=== PATIENT | female | born 1935 | race African-American/Black ===

== ENCOUNTER 2019-11-17 16:28 | Inpatient (IN) | payer MEDICARE, OTHER, MEDICAID ==
[~2019-11-17] VITALS: Ht 154.9 cm; Wt 82.0 kg
[2019-11-17 20:22] LABS: Basophils # (auto) 0 10 ^3/uL (0-0.2); Basophils % (auto) 0.6 % (0.0-2.0); Eosinophils # (auto) 0.1 10 ^3/uL (0-0.8); Eosinophils % (auto) 1.9 % (0.0-7.0); Hematocrit 44.9 % (36.0-46.0); Lymphocytes # (auto) 1.4 10 ^3/uL (0.4-5.4); Lymphocytes % (auto) 38.5 % (10.0-50.0); Mean Corpuscular Hemoglobin 28.3 pg (28.0-32.0); Mean Corpuscular Hgb Conc. 31.3 g/dL (32.0-36.0); Mean Corpuscular Volume 90.6 fL (80.0-100.0); Monocytes # (auto) 0.3 10 ^3/uL (0-1.3); Monocytes % (auto) 7.7 % (0.0-12.0); Neutrophils # (auto) 1.9 10 ^3/uL (1.6-8.6); Neutrophils % (auto) 51.3 % (37.0-80.0); Nucleated Red Blood Cells % 0.4 %; Platelet Count (auto) 312 10^3/uL (140-450); Red Blood Cells 4.95 10^6/uL (4.0-5.20); Red Cell Distribution Width 15.9 % (11.8-14.3); White Blood Cell 3.7 10^3/uL (4.4-10.8)
[2019-11-17 20:26] LABS: BUN/Creatinine Ratio 10.8; Calcium 8.9 mg/dL (8.5-10.1)
[2019-11-17 20:29] LABS: Bilirubin, Total 0.4 mg/dL (0.2-1.0); INR 1.03 (0.9-1.15); Partial Thromboplastin Time 28.3 sec (23.64-32.05); Total Protein 8.6 g/dL (6.4-8.2)
[2019-11-18] VITALS (7 sets, daily range): BP systolic 112–160; BP diastolic 65–76
[2019-11-18] MEDS ORDERED: ONDANSETRON HCL 4 MG/2 ML VIAL IV PRN (00:45)
[2019-11-18] MEDS ORDERED: POTASSIUM CHL 20 Meq TABLET PO ONE (00:45)
[2019-11-18] MEDS ORDERED: LABETALOL HCL 5 MG/ML 4ML SYRINGE IV ONE (00:45)
[2019-11-18] MEDS ORDERED: NITROGLYCERIN 0.4 MG SL TAB SL PRN (00:45)
[2019-11-18] MEDS ORDERED: PANTOPRAZOLE 40 MG/10 ML VIAL INJ IV ONE (00:45)
[2019-11-18] MEDS ORDERED: MORPHINE SULF INJ 2 MG/ML SYRINGE 1ML IV PRN (00:45)
[2019-11-18] MEDS: SODIUM CHLORIDE 0.9% 1,000 ML IV SCH ×2 (01:15→15:01)
[2019-11-18 02:17] LABS: Hematocrit 40.9 % (36.0-46.0); Hemoglobin 13.1 g/dL (12.2-16.2)
--- NOTE | 2019-11-18 03:17 | NUR ---
Telemetry admit from ER CLEMENTINE SETHI admitted to Telemetry unit after SBAR received. Patient oriented to Cora helton RN, unit, room, bed, and unit policies regarding patient care and visiting hours. Patient now on continuous telemetry monitoring, tele box # 62 and telemetry reading on arrival to unit is SB 49. Patient placed on bedside oxygen, weighed by bed scale and encouraged to call if they need something. All questions and concerns addressed, patient verbalized understanding. Note: Came per wheelchair awake alert oriented x 4, not in respiratory distress, placed in the bed comfortably, routine admission done.
--- NOTE | 2019-11-18 07:00 | NUR ---
Opening Shift Note Received report on the patient. Awake lying in bed. Patient shows no signs of distress at this time. Discussed the plan of care with the patient. Bed in lowest position, side rails up x2, and call light is within reach.
--- NOTE | 2019-11-18 07:19 | NUR ---
Care report given to Gloria Lara, patient is resting no distress.
[2019-11-18] MEDS: PANTOPRAZOLE 40 MG/10 ML VIAL INJ IV SCH (10:33)
--- NOTE | 2019-11-18 12:46 | NUR ---
Dr Crouch at bedside. No new orders received.
[2019-11-18] MEDS ORDERED: GOLYTELY 4L KIT PO ONE (14:30)
--- NOTE | 2019-11-18 19:34 | NUR ---
Endorsed care to VICTOR HUGO Green. Patient shows no signs of distress at this time.
--- NOTE | 2019-11-18 19:35 | NUR ---
Opening Shift Note Assumed care of patient AA&Ox4. Patient on 2L NC. Assisted patient to BSC and back to bed. Patient tolerated well. No S/S of distress/SOB or pain. Bed in lowest locked position, safety precautions in place, call light within reach. Patient informed NPO status @Midnight. Instructed on POC and to call for assist PRN, will continue to monitor for changes Q1hr and PRN. Signed: 11/18/19 at 2119 by VICENTE PARADA <Co-Signature Required> Co-Signed: 11/18/19 at 2119 by Rosemarie Santiago RN RN
[2019-11-18] MEDS: ALBUTEROL SULF 2.5 MG/0.5ML(0.5%) NEB SOLN NEB SCH (19:41)
--- NOTE | 2019-11-19 | NUR ---
NPO Patient aware of NPO status. Signed: 11/19/19 at 624 by VICENTE PARADA SN <Co-Signature Required> Co-Signed: 11/19/19 at 624 by Rosemarie Santiago RN RN
[2019-11-19] MEDS: SODIUM CHLORIDE 0.9% 1,000 ML IV SCH (03:24)
[2019-11-19 05:00] VITALS: BP 157/76
[2019-11-19 05:12] LABS: Basophils # (auto) 0 10 ^3/uL (0-0.2); Basophils % (auto) 0.6 % (0.0-2.0); Eosinophils # (auto) 0.1 10 ^3/uL (0-0.8); Eosinophils % (auto) 2.8 % (0.0-7.0); Hematocrit 38.2 % (36.0-46.0); Hemoglobin 12.3 g/dL (12.2-16.2); Lymphocytes # (auto) 1.6 10 ^3/uL (0.4-5.4); Lymphocytes % (auto) 46.3 % (10.0-50.0); Mean Corpuscular Hgb Conc. 32.3 g/dL (32.0-36.0); Mean Corpuscular Volume 89.9 fL (80.0-100.0); Monocytes # (auto) 0.4 10 ^3/uL (0-1.3); Monocytes % (auto) 11.7 % (0.0-12.0); Neutrophils # (auto) 1.3 10 ^3/uL (1.6-8.6); Neutrophils % (auto) 38.6 % (37.0-80.0); Nucleated Red Blood Cells % 0.2 %; Platelet Count (auto) 274 10^3/uL (140-450); Red Blood Cells 4.25 10^6/uL (4.0-5.20); Red Cell Distribution Width 15.6 % (11.8-14.3); White Blood Cell 3.4 10^3/uL (4.4-10.8)
[2019-11-19 05:30] LABS: Calcium 8.2 mg/dL (8.5-10.1)
[2019-11-19 05:36] LABS: Albumin 2.5 g/dL (3.4-5.0); BUN/Creatinine Ratio 11.1; Bilirubin, Total 0.4 mg/dL (0.2-1.0); Total Protein 7.2 g/dL (6.4-8.2)
[2019-11-19] MEDS ORDERED: GOLYTELY 4L KIT PO ONE (06:00)
[2019-11-19] MEDS ORDERED: MAGNESIUM CITRATE SOLUTION 300 ML BTL PO ONE (06:00)
[2019-11-19] MEDS: ALBUTEROL SULF 2.5 MG/0.5ML(0.5%) NEB SOLN NEB SCH ×3 (07:08→19:04)
[2019-11-19] MEDS ORDERED: POTASSIUM CHL 20MEQ/100ML 100 ML IV ONE (08:45)
[2019-11-19 09:00] VITALS: BP 156/76
[2019-11-19] MEDS: POTASSIUM CHL 20MEQ/100ML 100 ML IV SCH ×2 (09:24→10:27)
[2019-11-19] MEDS ORDERED: POTASSIUM EFFERVESENT TAB 25 MEQ PO ONE (09:45)
[2019-11-19] MEDS: PANTOPRAZOLE 40 MG/10 ML VIAL INJ IV SCH (10:26)
--- NOTE | 2019-11-19 11:58 | NUR ---
Tap water enema done. Patient tolerated well.
[2019-11-19 13:00] VITALS: BP 163/95
--- NOTE | 2019-11-19 13:41 | NUR ---
Patient down to OR. No signs of distress noted.
--- NOTE | 2019-11-19 14:00 | NUR ---
PATIENT WENT DOWN FOR A PROCEDURE. ATTEMPT P.T. TOMORROW.
[2019-11-19] MEDS: fentaNYL CITRATE 100 MCG/2 ML VL ONE ×3 (14:24→14:28)
[2019-11-19] MEDS: MIDAZOLAM HCL 5 MG/ML-1ML VIAL ONE ×3 (14:24→14:29)
[2019-11-19] MEDS ORDERED: SODIUM CHLORIDE LOCK 10 ML ONE (16:02)
--- NOTE | 2019-11-19 16:33 | NUR ---
assessment Patient is in a procedure. I will follow in the morning for my assessment. Addendum: 11/19/19 at 1634 by Yamilet ENCISO Amended: Links added.
[2019-11-19 17:00] VITALS: BP 137/70
--- NOTE | 2019-11-19 19:21 | NUR ---
Endorsed care to VICTOR HUGO Fung. Patient shows no signs of distress at this time.
--- NOTE | 2019-11-19 19:30 | NUR ---
Opening Shift Note Assumed care of patient, awake and alert. No S/S of distress/SOB or pain. Instructed on POC and to call for assist PRN, will continue to monitor for changes Q1hr and PRN.
--- NOTE | 2019-11-19 20:00 | NUR ---
Advised patient that stool has to be collected to be sent to lab for tests. Collection hat provided and placed on the patient's bedside commode. Patient verbalized understanding. Care continued.
[2019-11-19 21:47] VITALS: BP 133/62
[2019-11-19] MEDS: methylPREDNISolone SOD SUCC 40 MG/ML VL IV SCH (22:01)
[2019-11-19] MEDS: metroNIDAZOLE 500MG/100ML 100 ML IV SCH (22:01)
[2019-11-20 05:43] VITALS: BP 136/68
[2019-11-20] MEDS: methylPREDNISolone SOD SUCC 40 MG/ML VL IV SCH ×3 (05:55→22:31)
[2019-11-20] MEDS: metroNIDAZOLE 500MG/100ML 100 ML IV SCH ×3 (05:56→22:31)
--- NOTE | 2019-11-20 06:51 | NUR ---
Unable to collect stool specimen, patient also voids whenever she has a bowel movement. Will give report to oncoming RN.
[2019-11-20] MEDS: ALBUTEROL SULF 2.5 MG/0.5ML(0.5%) NEB SOLN NEB SCH ×2 (07:33→18:53)
--- NOTE | 2019-11-20 07:50 | NUR ---
Patient in bed, awake, oriented x4. Instructions given to press the call light if she has the urgency to have bowel movement to collect stool specimen.
[2019-11-20 08:00] VITALS: BP 138/72
[2019-11-20 09:00] VITALS: BP 138/72
[2019-11-20] MEDS: PANTOPRAZOLE 40 MG/10 ML VIAL INJ IV SCH (10:12)
[2019-11-20] MEDS: levoFLOXacin 500MG 100 ML IV SCH (10:13)
--- NOTE | 2019-11-20 11:00 | NUR ---
Radames Hines at bedside. Patient for possible discharge on Sunday. Patient has no BM today yet.
--- NOTE | 2019-11-20 11:30 | NUR ---
PT REQUESTED THAT P.T. BE DONE TOMORROW.
[2019-11-20 13:00] VITALS: BP 145/80
--- NOTE | 2019-11-20 13:52 | NUR ---
assessment Patient is a 84 year old female who is alert and oriented. Patients cognitive abilities are intact. Prior to admission patient lived home with family and functioned with assistance. Per patient she will return home to her prior living arrangements post discharge and family will transport her home. Patient informed me she has a fww and home 02 at 3L/min. Patient informed me her PCP is Dr Jama in [facility] for the past 15 years. Patient has no safety issues regarding returning home. I informed patient she has a consult for info on advanced directives and home health. Patient is requesting home health nurse and PT. Patient is requesting an advanced directive. Patient has been read a list of medicare providers. Patient has no preference on who provides service. Dr Crouch has recommended [facility]. MD order will be sent to [facility]. Patient has been provided with advanced directive. I informed patient she has a right to speak to a social services regarding all care. I informed patient she has a right to participate in any and all discharge planning. Patient does not have a POA and advanced directive. I have offered patient information on POA and advanced directives. I informed the patient the advantages and benefits of having an Advanced Directive. Patient verbalized understanding and agreed to discharge plan. Addendum: 11/20/19 at 1402 by Yamilet ENCISO Amended: Links added.
--- NOTE | 2019-11-20 13:59 | NUR ---
Call Center Support Representative Yamilet called back. Yamilet said patient needs order for Video Library Assistant Consult: PT, V/S, Safety as per Radames Hines
--- NOTE | 2019-11-20 14:09 | NUR ---
re-assessment Per consult [facility] for PT, V/S, safety. As stated in my previous note MD order has been sent to [facility]. Per Adela service will start within 24 to 48 hours of discharge. [phone]. Addendum: 11/20/19 at 1411 by Yamilet Diana Amended: Links added.
--- NOTE | 2019-11-20 16:40 | NUR ---
Stool specimen sent to Laboratory.
[2019-11-20 16:52] VITALS: BP 156/90
--- NOTE | 2019-11-20 17:10 | NUR ---
Laboratory received the stool specimen.
--- NOTE | 2019-11-20 18:41 | NUR ---
RT NOTE PT WAS SEEN BY RT FOR HHN TX. PT TOLERATES WELL VIA MASK. NO ADVERSE REACTION NOTED. CONT ORDERED Addendum: 11/20/19 at 2221 by Yolanda Dove RT Amended: Links added.
[2019-11-20 22:00] VITALS: BP 176/91
--- NOTE | 2019-11-21 04:09 | NUR ---
Patient complaining of headache and requested blood pressure to be taken. Per patient she takes blood pressure medication at home but unable to recall the name of medication. BH=551/107; HR=81; Hospitalist Carl Landa NP, paged. Awaiting for call back.
--- NOTE | 2019-11-21 04:29 | NUR ---
Received callback from hospitalist Carl Landa NP. Order received and noted. Medication will be given to patient as ordered. Care continued.
[2019-11-21] MEDS ORDERED: LABETALOL HCL 5 MG/ML 4ML SYRINGE IV ONE (04:30)
[2019-11-21 05:00] VITALS: BP 134/63
--- NOTE | 2019-11-21 05:35 | NUR ---
ZK=959/63; HR = 51. Patient verbalized headache is gone. Care continued.
[2019-11-21] MEDS: ALBUTEROL SULF 2.5 MG/0.5ML(0.5%) NEB SOLN NEB SCH ×3 (06:40→18:35)
[2019-11-21] MEDS: metroNIDAZOLE 500MG/100ML 100 ML IV SCH ×3 (06:44→22:20)
[2019-11-21] MEDS: methylPREDNISolone SOD SUCC 40 MG/ML VL IV SCH ×3 (06:44→22:20)
[2019-11-21 09:00] VITALS: BP 131/58
--- NOTE | 2019-11-21 10:48 | NUR ---
Dr Crouch at bedside. New orders received.
[2019-11-21] MEDS ORDERED: amLODIPine BESYLATE 5 MG TAB PO ONE (11:00)
[2019-11-21] MEDS ORDERED: cloNIDine HCL 0.1 MG TAB PO PRN (11:00)
[2019-11-21] MEDS: levoFLOXacin 500MG 100 ML IV SCH (11:22)
[2019-11-21] MEDS: PANTOPRAZOLE 40 MG/10 ML VIAL INJ IV SCH (11:22)
--- NOTE | 2019-11-21 12:43 | NUR ---
Nutrition Assessment Notes please see attached link for complete assessment Est Energy needs ABW 65 [id number] kcals (23-25 kcal/kgABW), Est Protein needs: 65-71 gms/day (1.0-1.1 gm/kgABW). Will continue to monitor and reassess prn. Addendum: 11/21/19 at [address] Amended: Links added.
[2019-11-21 13:00] VITALS: BP 131/75
[2019-11-21 14:13] VITALS: BP 131/58
[2019-11-21 16:29] VITALS: BP 136/62
--- NOTE | 2019-11-21 19:23 | NUR ---
ENDORSED CARE TO VICTOR HUGO PAREKH. PATIENT SHOWS NO SIGNS OF DISTRESS AT THIS TIME.
[2019-11-21 22:00] VITALS: BP 125/69
[2019-11-22 05:00] VITALS: BP 143/89
[2019-11-22] MEDS ORDERED: SODIUM CHLORIDE 0.9 % NEB SOLN 3ML NEB ONE ×2 (05:50→10:31)
[2019-11-22] MEDS: metroNIDAZOLE 500MG/100ML 100 ML IV SCH (06:10)
[2019-11-22] MEDS: methylPREDNISolone SOD SUCC 40 MG/ML VL IV SCH (06:10)
[2019-11-22] MEDS: ALBUTEROL SULF 2.5 MG/0.5ML(0.5%) NEB SOLN NEB SCH (07:11)
--- NOTE | 2019-11-22 08:56 | NUR ---
Dr Crouch at bedside. New orders received.
--- NOTE | 2019-11-22 09:33 | NUR ---
Paged the dairy nutrition consultant social organization professor regarding the home health with [facility]. Awaiting for a call back.
--- NOTE | 2019-11-22 09:45 | NUR ---
Nabila from nursing home social worker called back. Nabila stated that the home health is already set up and it's ok for the patient to discharge. I informed her that the patient is discharging today and she will call [facility] and let them know.
[2019-11-22] MEDS ORDERED: amLODIPine BESYLATE 5 MG TAB PO SCH (10:00)
[2019-11-22 10:05] VITALS: BP 133/65
[2019-11-22] MEDS: PANTOPRAZOLE 40 MG/10 ML VIAL INJ IV SCH (10:47)
[2019-11-22] MEDS: levoFLOXacin 500MG 100 ML IV SCH (10:47)
--- NOTE | 2019-11-22 17:32 | NUR ---
Discharged patient. Patient shows no signs of distress. IV removed, tele box returned, and patient take down by wheelchair.
--- NOTE | 2019-11-24 09:27 | NUR ---
Weekend electrician control equipment-I received a page from nurse Jane letting me know that this patient is to discharge home and resume care with [facility]. I called [facility] and spoke with Crystal, she said they will see patient 11/23/19.
== END 2019-11-22 17:35 | disposition home health service (06) | DRG 387 ==
LOC: ER 16:28 → TELE 16:29 → TELE-WESTW 11-18 03:22
PROVIDERS: ADMIT Nurse Practitioner; ATTEND Family Medicine
PROC: 0DBE8ZX Excision of Large Intestine, Via Natural or Artificial Opening Endoscopic, Diagnostic (ICD-10-PCS; principal; 2019-11-19 14:15)
DX: K51.011 Ulcerative (chronic) pancolitis with rectal bleeding (principal); I10 Essential (primary) hypertension; K64.8 Other hemorrhoids; E87.6 Hypokalemia; D25.9 Leiomyoma of uterus, unspecified; J43.9 Emphysema, unspecified; I70.0 Atherosclerosis of aorta; K59.8 Other specified functional intestinal disorders; Z90.49 Acquired absence of other specified parts of digestive tract; Z87.891 Personal history of nicotine dependence; Z90.89 Acquired absence of other organs; Z99.81 Dependence on supplemental oxygen
CPT/HCPCS: 36415; 45380; 71045; 74176; 80053; 82270; 83690; 85014; 85018; 85025; 85610; 85730; 86850; 86900; 86901; 86906; 87045; 87427; 87493; 94640; C9113; G0378; J1956; J2250; J3480; J3490

== ENCOUNTER 2019-12-06 23:16 | Inpatient (IN) | payer MEDICARE, MEDICAID ==
[~2019-12-06] VITALS: Ht 160 cm; Wt 80.9 kg
[2019-12-07 01:29] LABS: Basophils # (auto) 0 10 ^3/uL (0-0.2); Basophils % (auto) 0.3 % (0.0-2.0); Eosinophils # (auto) 0 10 ^3/uL (0-0.8); Eosinophils % (auto) 0.1 % (0.0-7.0); Hematocrit 44.2 % (36.0-46.0); Hemoglobin 14.8 g/dL (12.2-16.2); Lymphocytes # (auto) 0.1 10 ^3/uL (0.4-5.4); Lymphocytes % (auto) 0.7 % (10.0-50.0); Mean Corpuscular Hemoglobin 29.1 pg (28.0-32.0); Mean Corpuscular Hgb Conc. 33.3 g/dL (32.0-36.0); Mean Corpuscular Volume 87.3 fL (80.0-100.0); Monocytes # (auto) 0.1 10 ^3/uL (0-1.3); Monocytes % (auto) 0.7 % (0.0-12.0); Neutrophils # (auto) 10.6 10 ^3/uL (1.6-8.6); Neutrophils % (auto) 98.2 % (37.0-80.0); Nucleated Red Blood Cells % 0.1 %; Platelet Count (auto) 134 10^3/uL (140-450); Red Blood Cells 5.07 10^6/uL (4.0-5.20); Red Cell Distribution Width 16.4 % (11.8-14.3); White Blood Cell 10.8 10^3/uL (4.4-10.8)
[2019-12-07 01:49] LABS: Albumin 2.4 g/dL (3.4-5.0); BUN/Creatinine Ratio 15.7; Calcium 8.2 mg/dL (8.5-10.1); Potassium 3.1 mmol/L (3.5-5.1)
[2019-12-07 01:52] LABS: Bilirubin, Total 0.5 mg/dL (0.2-1.0); Total Protein 6.9 g/dL (6.4-8.2)
[2019-12-07 03:27] LABS: INR 1.17 (0.9-1.15); Partial Thromboplastin Time 26.5 sec (23.0-31.2)
[2019-12-07 07:16] LABS: Alcohol, Urine < 3.0 mg/dL (0-10); Amphetamine Screen, Urine NEGATIVE (NEGATIVE); Barbiturate Scree,Urine NEGATIVE (NEGATIVE); Benzodiazephine Screen, Urine NEGATIVE (NEGATIVE); Cannabinoid Screen, Urine NEGATIVE (NEGATIVE); Cocaine Screen, Urine NEGATIVE (NEGATIVE); Opiate Scree,Urine NEGATIVE (NEGATIVE); Phencyclidine Screen, Urine NEGATIVE (NEGATIVE)
[2019-12-07] MEDS ORDERED: POTASSIUM EFFERVESENT TAB 25 MEQ PO ONE ×2 (07:30→10:15)
[2019-12-07] MEDS ORDERED: FUROSEMIDE 20 MG/2 ML VIAL IV ONE (07:30)
[2019-12-07 07:48] LABS: Urine Bacteria NONE SEEN /hpf (None Seen); Urine Blood TRACE /uL (Negative); Urine Mucus FEW (None Seen); Urine WBC 54 /hpf (0 - 5)
[2019-12-07] MEDS ORDERED: cefTRIAXone 1GM/50ML D5W 50 ML IV ONE (09:00)
[2019-12-07] MEDS ORDERED: MORPHINE SULF INJ 2 MG/ML SYRINGE 1ML IV PRN ×2 (09:00→10:00)
[2019-12-07] MEDS ORDERED: NITROGLYCERIN 0.4 MG SL TAB SL PRN (09:00)
[2019-12-07] MEDS ORDERED: TEMAZEPAM 15 MG CAP PO PRN (10:00)
[2019-12-07] MEDS ORDERED: DEXTROSE (50%) 50ML SYRG IV PRN (10:00)
[2019-12-07] MEDS ORDERED: traMADol HCL 50 MG TAB PO PRN (10:00)
[2019-12-07] MEDS ORDERED: ACETAMINOPHEN 500 MG TAB PO PRN (10:00)
[2019-12-07] MEDS ORDERED: LACTULOSE 20Gm/30ML SOLN PO PRN (10:00)
[2019-12-07] MEDS ORDERED: ONDANSETRON HCL 4 MG/2 ML VIAL IV PRN (10:00)
[2019-12-07] MEDS: PANTOPRAZOLE 40 MG TAB PO SCH ×2 (10:34→10:42)
[2019-12-07] MEDS: ASPirin 81 mg TAB PO SCH (10:34)
[2019-12-07] MEDS: ENOXAPARIN SOD 40 MG/0.4 ML SYRINGE SC SCH (10:35)
[2019-12-07] MEDS: NITROGLYCERIN 0.2MG/HR TOPICAL PATCH TD SCH (10:42)
[2019-12-07] MEDS: ACCU-CHEK COMFORT CURVE STRIP VI SCH ×3 (11:53→21:56)
[2019-12-07] MEDS: SODIUM CHLOR 0.9% PF (SALINE LOCK) 10ML VIAL/SYR IV SCH ×2 (14:15→21:29)
[2019-12-07] MEDS: MESALAMINE 400mg Delayed Release Cap PO SCH ×2 (14:15→21:36)
[2019-12-07 20:55] VITALS: BP 126/61
--- NOTE | 2019-12-07 20:55 | NUR ---
assumed care of pt at this time, alert and oriented x4 no c/o pain, skin intact, 3 lpm via n/c NAD. IV flushes freely.
[2019-12-07] MEDS: metroNIDAZOLE 500 MG TAB PO SCH (21:36)
[2019-12-07] MEDS: ATORVASTATIN 20 MG TAB PO SCH (21:36)
[2019-12-07 22:00] VITALS: BP 126/61
[2019-12-08 05:00] VITALS: BP 108/67
[2019-12-08 05:15] LABS: Basophils # (auto) 0 10 ^3/uL (0-0.2); Basophils % (auto) 1.2 % (0.0-2.0); Eosinophils # (auto) 0 10 ^3/uL (0-0.8); Eosinophils % (auto) 0.3 % (0.0-7.0); Hematocrit 43.3 % (36.0-46.0); Hemoglobin 13.9 g/dL (12.2-16.2); Lymphocytes % (auto) 25.4 % (10.0-50.0); Mean Corpuscular Hemoglobin 28.5 pg (28.0-32.0); Mean Corpuscular Volume 88.9 fL (80.0-100.0); Monocytes # (auto) 0.2 10 ^3/uL (0-1.3); Monocytes % (auto) 5.3 % (0.0-12.0); Neutrophils # (auto) 2.7 10 ^3/uL (1.6-8.6); Neutrophils % (auto) 67.8 % (37.0-80.0); Nucleated Red Blood Cells % 0.6 %; Platelet Count (auto) 109 10^3/uL (140-450); Red Blood Cells 4.88 10^6/uL (4.0-5.20); Red Cell Distribution Width 16.4 % (11.8-14.3); White Blood Cell 3.9 10^3/uL (4.4-10.8)
[2019-12-08 05:39] LABS: Albumin 2.2 g/dL (3.4-5.0); Potassium 3.5 mmol/L (3.5-5.1)
[2019-12-08] MEDS: SODIUM CHLOR 0.9% PF (SALINE LOCK) 10ML VIAL/SYR IV SCH ×3 (05:43→22:25)
[2019-12-08] MEDS: MESALAMINE 400mg Delayed Release Cap PO SCH ×3 (05:43→22:25)
[2019-12-08 05:45] LABS: BUN/Creatinine Ratio 21.7; Bilirubin, Total 0.3 mg/dL (0.2-1.0); Total Protein 6.3 g/dL (6.4-8.2)
[2019-12-08] MEDS: ACCU-CHEK COMFORT CURVE STRIP VI SCH ×4 (06:22→22:34)
--- NOTE | 2019-12-08 07:40 | NUR ---
SHIFT OPENING NOTE RECEIVED PATIENT LYING IN BED SLEEPING COMFORTABLY AND WAS IN NO DISTRESS. PATIENT EASILY AWAKENED AND VOICED NO C/O PAIN AND PATIENT WAS IN NO DISTRESS. SHIFT [id number] DONE AND CHARTED. PLAN OF CARE, MEDS, TREATMENTS AND SAFETY DISCUSSED WITH PATIENT AND PATIENT VERBALIZED UNDERSTANDING. WILL CONTINUE TO MONITOR PATIENT.
[2019-12-08 08:00] VITALS: BP 105/76
[2019-12-08 09:00] VITALS: BP 105/53
[2019-12-08] MEDS: cefTRIAXone 1GM/50ML D5W 50 ML IV SCH (09:01)
[2019-12-08 10:18] LABS: Free T3 1.34 pg/mL (2.3-4.2); Free T4 (Free Thyroxine) 0.83 ng/dL (0.89-1.76)
[2019-12-08] MEDS: FUROSEMIDE 40 MG/4 ML VIAL IV SCH (11:10)
[2019-12-08] MEDS: NITROGLYCERIN 0.2MG/HR TOPICAL PATCH TD SCH (11:12)
[2019-12-08] MEDS: metroNIDAZOLE 500 MG TAB PO SCH ×2 (11:14→22:25)
[2019-12-08] MEDS: ASPirin 81 mg TAB PO SCH (11:14)
[2019-12-08] MEDS: PANTOPRAZOLE 40 MG TAB PO SCH (11:15)
[2019-12-08] MEDS: ENOXAPARIN SOD 40 MG/0.4 ML SYRINGE SC SCH (11:15)
[2019-12-08] MEDS: POTASSIUM CHL 20 Meq TABLET PO SCH (11:15)
--- NOTE | 2019-12-08 11:57 | NUR ---
ACCUCHECK DONE BS-129
[2019-12-08 13:00] VITALS: BP 114/59
[2019-12-08 17:00] VITALS: BP 127/62
--- NOTE | 2019-12-08 19:40 | NUR ---
Opening Shift Note Assumed care of patient. Patient asleep but easily arousable to name. No S/S of distress/SOB or pain. Patient reports feeling weak but otherwise no other complaints. Educated the patient on the need to call for assistance for her safety. Instructed on POC, will continue to monitor for changes Q1hr and PRN.
[2019-12-08] MEDS: ATORVASTATIN 20 MG TAB PO SCH (22:25)
[2019-12-08 22:26] VITALS: BP 119/54
[2019-12-08] MEDS: METOPROLOL TARTRATE 25 MG TAB PO SCH (22:27)
[2019-12-09 05:53] VITALS: BP 107/66
[2019-12-09] MEDS: SODIUM CHLOR 0.9% PF (SALINE LOCK) 10ML VIAL/SYR IV SCH ×2 (06:00→14:07)
[2019-12-09] MEDS: ACCU-CHEK COMFORT CURVE STRIP VI SCH ×2 (06:59→11:43)
[2019-12-09] MEDS: MESALAMINE 400mg Delayed Release Cap PO SCH ×2 (07:00→14:06)
[2019-12-09 07:06] LABS: Basophils # (auto) 0 10 ^3/uL (0-0.2); Basophils % (auto) 0.5 % (0.0-2.0); Eosinophils # (auto) 0 10 ^3/uL (0-0.8); Eosinophils % (auto) 0.8 % (0.0-7.0); Hemoglobin 12.9 g/dL (12.2-16.2); Lymphocytes # (auto) 1.2 10 ^3/uL (0.4-5.4); Lymphocytes % (auto) 28.4 % (10.0-50.0); Mean Corpuscular Hemoglobin 27.7 pg (28.0-32.0); Mean Corpuscular Hgb Conc. 31.6 g/dL (32.0-36.0); Mean Corpuscular Volume 87.6 fL (80.0-100.0); Monocytes # (auto) 0.2 10 ^3/uL (0-1.3); Monocytes % (auto) 4.6 % (0.0-12.0); Neutrophils # (auto) 2.9 10 ^3/uL (1.6-8.6); Neutrophils % (auto) 65.7 % (37.0-80.0); Nucleated Red Blood Cells % 0.3 %; Platelet Count (auto) 111 10^3/uL (140-450); Red Blood Cells 4.68 10^6/uL (4.0-5.20); Red Cell Distribution Width 16.3 % (11.8-14.3); White Blood Cell 4.4 10^3/uL (4.4-10.8)
[2019-12-09 07:19] LABS: BUN/Creatinine Ratio 21.8; Calcium 8.2 mg/dL (8.5-10.1)
--- NOTE | 2019-12-09 07:40 | NUR ---
OPENING SHIFT NOTE RECEIVED PATIENT LYING IN BED SLEEPING COMFORTABLY AND WAS IN NO DISTRESS. PATIENT EASILY AWAKENED AND VOICED NO C/O PAIN. SHIFT ASSESSMENT DONE AND CHARTED. PLAN OF CARE, MEDICATIONS, TREATMENTS AND SAFETY DISCUSSED WITH PATIENT AND PATIENT VERBALIZED UNDERSTANDING. BED WAS IN LOWEST POSITION, BRAKES AND SIDERAILS UP X2. WILL CONTINUE TO MONITOR PATIENT.
[2019-12-09 09:00] VITALS: BP 102/58
[2019-12-09] MEDS: cefTRIAXone 1GM/50ML D5W 50 ML IV SCH (09:10)
[2019-12-09] MEDS ORDERED: POTASSIUM EFFERVESENT TAB 25 MEQ GT ONE (10:00)
[2019-12-09] MEDS ORDERED: MET25T PO (10:31)
[2019-12-09] MEDS ORDERED: FURO1TAB33 PO (10:31)
[2019-12-09] MEDS ORDERED: MET500T PO (10:31)
[2019-12-09] MEDS ORDERED: ASPI81CH43 PO (10:31)
[2019-12-09] MEDS ORDERED: ATOR20TA50 PO (10:31)
[2019-12-09] MEDS: ASPirin 81 mg TAB PO SCH (10:48)
[2019-12-09] MEDS: PANTOPRAZOLE 40 MG TAB PO SCH (10:49)
[2019-12-09] MEDS: POTASSIUM CHL 20 Meq TABLET PO SCH (10:49)
[2019-12-09] MEDS: metroNIDAZOLE 500 MG TAB PO SCH (10:49)
[2019-12-09] MEDS: ENOXAPARIN SOD 40 MG/0.4 ML SYRINGE SC SCH (10:49)
[2019-12-09] MEDS: FUROSEMIDE 40 MG/4 ML VIAL IV SCH (10:49)
[2019-12-09] MEDS: METOPROLOL TARTRATE 25 MG TAB PO SCH (10:50)
[2019-12-09] MEDS: NITROGLYCERIN 0.2MG/HR TOPICAL PATCH TD SCH (10:52)
[2019-12-09 12:00] VITALS: BP 119/68
--- NOTE | 2019-12-09 12:40 | NUR ---
Frausto catheter dc'd Order to discontinue frausto catheter. Frausto dc'd with clean technique following deflation of balloon. Patient tolerated well with no complaints of pain. Continue care.
[2019-12-09 13:58] VITALS: BP 119/68
--- NOTE | 2019-12-09 16:30 | NUR ---
Discharge instructions given as ordered. Encourage to follow up with PMD as instructed. All questions and concerns addressed. Patient verbalized understanding. Medication reconciliation form completed and copy given to patient. IV removed with catheter intact, pressure dressing applied, frausto catheter removed and has already voided without difficulty. Telemetry unit returned to ICU. Patient taken to vehicle via wheelchair with all personal belongings, accompanied by staff and family member. No distress noted at time of departure.
== END 2019-12-09 16:30 | disposition home or self-care (01) | DRG 280 ==
LOC: ER 23:16 → TELE 23:17 → TELE-WESTW 12-07 20:55
PROVIDERS: ADMIT Internal Medicine; ATTEND Internal Medicine Pulmonary Disease
DX: I21.4 Non-ST elevation (NSTEMI) myocardial infarction (principal); I50.43 Acute on chronic combined systolic (congestive) and diastolic (congestive) heart failure; N39.0 Urinary tract infection, site not specified; N17.9 Acute kidney failure, unspecified; J96.10 Chronic respiratory failure, unspecified whether with hypoxia or hypercapnia; I11.0 Hypertensive heart disease with heart failure; E78.5 Hyperlipidemia, unspecified; E87.6 Hypokalemia; J44.9 Chronic obstructive pulmonary disease, unspecified; Z86.73 Personal history of transient ischemic attack (TIA), and cerebral infarction without residual deficits; Z87.891 Personal history of nicotine dependence; F12.90 Cannabis use, unspecified, uncomplicated; Z80.9 Family history of malignant neoplasm, unspecified; Z83.3 Family history of diabetes mellitus; Z99.81 Dependence on supplemental oxygen; Z20.828 Contact with and (suspected) exposure to other viral communicable diseases
CPT/HCPCS: 36415; 70450; 71045; 80048; 80053; 80061; 80307; 81001; 82550; 82962; 83036; 83605; 83735; 83880; 84439; 84443; 84481; 84484; 85025; 85610; 85730; 87040; 87081; 87086; 87493; 93005; 93306; G0378; J0696

== ENCOUNTER 2022-11-29 14:55 | Inpatient (IN) | payer MEDICARE, OTHER ==
[~2022-11-29] VITALS: Ht 165.1 cm; Wt 58.3 kg
[~2022-11-29 14:55] MED LIST: ASPI81CH43 PO; ATOR20TA50 PO; FURO1TAB33 PO; MET25T PO; MET500T PO
[2022-11-29] MEDS ORDERED: ASPirin 325 MG TAB PO ONE (15:30)
[2022-11-29] MEDS ORDERED: ACETAMINOPHEN 325 MG TAB PO PRN (17:45)
[2022-11-29] MEDS ORDERED: ONDANSETRON HCL 4 MG/2 ML VIAL IV PRN (17:45)
[2022-11-29] MEDS ORDERED: DOCUSATE SOD 100 MG CAP PO PRN (17:45)
[2022-11-29 18:29] VITALS: PULSE 61; RESP 16; O2SAT 95
[2022-11-29 18:48] LABS: Hematocrit 32.1 % (36.0-46.0)
[2022-11-29 18:50] LABS: Hemoglobin 9.9 g/dL (12.2-16.2); Mean Corpuscular Hgb Conc. 30.7 g/dL (32.0-36.0); Mean Corpuscular Volume 78.3 fL (80.0-100.0); Red Blood Cells 4.11 10^6/uL (4.0-5.20); White Blood Cell 3.5 10^3/uL (4.4-10.8)
[2022-11-29 18:51] LABS: Red Cell Distribution Width 23.1 % (11.8-14.3)
[2022-11-29 18:54] LABS: Albumin 2.7 g/dL (3.4-5.0); Calcium 8.4 mg/dL (8.5-10.1)
[2022-11-29 18:57] LABS: Bilirubin, Total 0.9 mg/dL (0.2-1.0); Total Protein 6.8 g/dL (6.4-8.2)
[2022-11-29 19:00] LABS: INR 1.12 (0.9-1.15); Partial Thromboplastin Time 25.9 SEC (24.5-34.5); Prothrombin Time 11.7 sec (9.3-11.8)
[2022-11-29] MEDS ORDERED: cloNIDine HCL 0.1 MG TAB PO ONE (19:00)
[2022-11-29 19:04] LABS: Band Neutrophils % (manual) 0; Basophils % (manual) 0 (0.0-2.0); Blast Cells 0; Metamyelocytes % 0; Myelocytes % 0; Promyelocytes % 0; Reactive Lymphocytes 0
[2022-11-29 19:13] LABS: Base Excess -1.4 mmol/L (-2.0-2.0)
[2022-11-29 19:31] VITALS: PULSE 59; RESP 18; O2SAT 99
[2022-11-29 19:32] LABS: Anisocytosis Slight; Eosinophils % (manual) 2 (0-7); Hypochromia Slight; Large Platelets FEW; Lymphocytes % (manual) 41 (10.0-50.0); Monocytes % (manual) 3 (0-12); Platelet Estimate Adequate; Target Cell FEW
[2022-11-29 20:24] LABS: % Iron Saturation 15.9 % (15-50)
[2022-11-29] MEDS ORDERED: HEPARIN SODIUM (PORCINE) 5000 UNITS/ML 1ML VIAL IV ONE (20:45)
[2022-11-29] MEDS ORDERED: HEPARIN DRIP/D5W 100UNITS/ML 250 ML IV SCH (20:45)
[2022-11-29] MEDS ORDERED: IOHEXOL 350 MG/ML 100ML IJ ONE (21:57)
[2022-11-29] MEDS ORDERED: ATORVASTATIN 20 MG TAB PO SCH (22:00)
[2022-11-29] MEDS: SODIUM CHLOR 0.9% PF (SALINE LOCK) 10ML VIAL/SYR IV SCH (22:19)
[2022-11-29] MEDS: METOPROLOL TARTRATE 25 MG TAB PO SCH (22:20)
[2022-11-29 22:48] VITALS: O2SAT 93
[2022-11-29] MEDS: HYDROcodone-ACET 5/325MG TAB PO PRN (22:59)
[2022-11-29] MEDS: hydrALAZINE HCL 20 MG/ML VL IV PRN (22:59)
[2022-11-30] VITALS (8 sets, daily range): BP systolic 147–193; BP diastolic 68–88; PULSE 45–73; RESP 16–22; TEMP 97.6–98.5; O2SAT 92–99
[2022-11-30 04:27] LABS: INR 1.19 (0.9-1.15); Prothrombin Time 12.4 sec (9.3-11.8)
[2022-11-30 04:35] LABS: Partial Thromboplastin Time 93.6 SEC (24.5-34.5)
[2022-11-30] MEDS ORDERED: AMLO1TAB22 PO (05:19)
[2022-11-30] MEDS ORDERED: CYCL-614 PO (05:19)
[2022-11-30] MEDS ORDERED: POTA1TAB4 (05:19)
[2022-11-30] MEDS ORDERED: PRAV20TA3 PO (05:19)
[2022-11-30] MEDS ORDERED: CLOP75TA70 PO (05:19)
[2022-11-30] MEDS ORDERED: FUR20T PO (05:19)
[2022-11-30] MEDS ORDERED: METH-1181 PO (05:19)
[2022-11-30] MEDS ORDERED: SULF500T57 PO (05:19)
[2022-11-30] MEDS ORDERED: LOPE-62 PO (05:19)
[2022-11-30] MEDS ORDERED: LEVO75TA6 PO (05:19)
[2022-11-30] MEDS ORDERED: HEPARIN DRIP/D5W 100UNITS/ML 250 ML IV SCH (05:36)
[2022-11-30] MEDS: SODIUM CHLOR 0.9% PF (SALINE LOCK) 10ML VIAL/SYR IV SCH ×3 (06:12→22:00)
[2022-11-30] MEDS: METOPROLOL TARTRATE 25 MG TAB PO SCH ×2 (09:21→22:00)
[2022-11-30] MEDS: ASPirin 81 mg TAB PO SCH (09:23)
[2022-11-30] MEDS: FUROSEMIDE 20 MG TAB PO SCH (09:23)
[2022-11-30 11:43] LABS: Hepatitis A Ab IgM Negative; Hepatitis B Surface Antigen Negative (Negative)
[2022-11-30 11:44] LABS: Hepatitis B Core IgM Negative; Hepatitis C Antibody Negative (Negative)
[2022-11-30 13:06] LABS: Alcohol, Urine < 3.0 mg/dL (0-10); Amphetamine Screen, Urine NEGATIVE (NEGATIVE); Barbiturate Scree,Urine NEGATIVE (NEGATIVE); Benzodiazephine Screen, Urine NEGATIVE (NEGATIVE); Cannabinoid Screen, Urine NEGATIVE (NEGATIVE); Cocaine Screen, Urine NEGATIVE (NEGATIVE); Opiate Scree,Urine NEGATIVE (NEGATIVE); Phencyclidine Screen, Urine NEGATIVE (NEGATIVE)
[2022-11-30 13:10] LABS: Urine Bacteria NONE SEEN /hpf (None Seen); Urine Blood 2+ /uL (Negative); Urine Clarity Clear (Clear); Urine Protein, UAD Negative (Negative); Urine Specific Gravity 1.019 (1.001-1.035); Urine Urobilinogen Normal (Negative); Urine WBC 9 /hpf (0 - 5)
[2022-11-30 13:19] LABS: Urine Color Straw (Yellow)
[2022-11-30 14:33] LABS: INR 1.14 (0.9-1.15); Partial Thromboplastin Time 48.1 SEC (24.5-34.5); Prothrombin Time 11.9 sec (9.3-11.8)
[2022-11-30] MEDS: HEPARIN DRIP/D5W 100UNITS/ML 250 ML IV SCH ×2 (15:56→23:43)
[2022-11-30] MEDS: HYDROcodone-ACET 5/325MG TAB PO PRN (19:33)
[2022-11-30] MEDS ORDERED: ATORVASTATIN 20 MG TAB PO SCH (22:00)
[2022-11-30 23:00] LABS: INR 1.14 (0.9-1.15); Partial Thromboplastin Time 62.1 SEC (24.5-34.5); Prothrombin Time 11.9 sec (9.3-11.8)
[2022-11-30] MEDS: hydrALAZINE HCL 20 MG/ML VL IV PRN (23:44)
[2022-12-01] VITALS (7 sets, daily range): BP systolic 147–165; BP diastolic 63–78; PULSE 50–97; RESP 16–19; TEMP 97.9–98.4; O2SAT 96–100
[2022-12-01] MEDS: SODIUM CHLOR 0.9% PF (SALINE LOCK) 10ML VIAL/SYR IV SCH ×3 (06:19→22:00)
[2022-12-01 06:26] LABS: INR 1.14 (0.9-1.15); Partial Thromboplastin Time 69.9 SEC (24.5-34.5); Prothrombin Time 11.9 sec (9.3-11.8)
[2022-12-01 06:50] LABS: % Iron Saturation 27.7 % (15-50)
[2022-12-01 06:54] LABS: Ferritin 29.8 ng/mL (10-322)
[2022-12-01] MEDS ORDERED: LEVOTHYROXINE SODIUM 25 MCG TAB PO SCH (07:00)
[2022-12-01] MEDS: ASPirin 81 mg TAB PO SCH (10:53)
[2022-12-01] MEDS: FUROSEMIDE 20 MG TAB PO SCH (10:53)
[2022-12-01] MEDS: METOPROLOL TARTRATE 25 MG TAB PO SCH ×2 (10:54→22:00)
[2022-12-01 12:05] LABS: Hemoglobin 8.8 g/dL (12.2-16.2); White Blood Cell 3.6 10^3/uL (4.4-10.8)
[2022-12-01 12:07] LABS: Hematocrit 28.6 % (36.0-46.0); Mean Corpuscular Hemoglobin 23.9 pg (28.0-32.0); Mean Corpuscular Hgb Conc. 30.7 g/dL (32.0-36.0); Mean Corpuscular Volume 77.8 fL (80.0-100.0); Red Blood Cells 3.68 10^6/uL (4.0-5.20)
[2022-12-01 12:11] LABS: INR 1.18 (0.9-1.15); Prothrombin Time 12.3 sec (9.3-11.8)
[2022-12-01 12:17] LABS: Red Cell Distribution Width 22.9 % (11.8-14.3)
[2022-12-01 12:18] LABS: Basophils % (manual) 0 (0.0-2.0); Blast Cells 0; Eosinophils % (manual) 0 (0-7); Metamyelocytes % 0; Myelocytes % 0; Promyelocytes % 0; Reactive Lymphocytes 0
[2022-12-01 12:53] LABS: Partial Thromboplastin Time > 139.0 SEC (24.5-34.5)
[2022-12-01 13:49] LABS: Band Neutrophils % (manual) 1; Lymphocytes % (manual) 38 (10.0-50.0); Monocytes % (manual) 10 (0-12)
[2022-12-01 13:51] LABS: Anisocytosis Slight; Hypochromia Slight; Platelet Estimate Adequate
[2022-12-01] MEDS: hydrALAZINE HCL 20 MG/ML VL IV PRN (18:58)
[2022-12-01] MEDS: HYDROcodone-ACET 5/325MG TAB PO PRN (22:08)
[2022-12-02] VITALS (7 sets, daily range): BP systolic 125–158; BP diastolic 56–76; PULSE 50–74; RESP 16–18; TEMP 97.6–98.6; O2SAT 94–100
[2022-12-02] MEDS: SODIUM CHLOR 0.9% PF (SALINE LOCK) 10ML VIAL/SYR IV SCH ×3 (06:01→21:18)
[2022-12-02] MEDS: ENOXAPARIN SOD 60 MG/0.6 ML SYRINGE SC SCH ×3 (06:02→21:18)
[2022-12-02 08:06] LABS: Anti-Nuclear Antibody Direct Positive (Negative); Haptoglobin 73 mg/dL (41-333)
[2022-12-02] MEDS: METOPROLOL TARTRATE 25 MG TAB PO SCH (09:31)
[2022-12-02] MEDS: ASPirin 81 mg TAB PO SCH (10:17)
[2022-12-02] MEDS: FUROSEMIDE 20 MG TAB PO SCH (10:18)
[2022-12-02 11:40] LABS: Hemoglobin 8.9 g/dL (12.2-16.2); Mean Corpuscular Hgb Conc. 30.9 g/dL (32.0-36.0); White Blood Cell 2.5 10^3/uL (4.4-10.8)
[2022-12-02 11:42] LABS: Hematocrit 28.9 % (36.0-46.0); Mean Corpuscular Hemoglobin 24.1 pg (28.0-32.0); Mean Corpuscular Volume 78.2 fL (80.0-100.0); Red Blood Cells 3.69 10^6/uL (4.0-5.20); Red Cell Distribution Width 22.6 % (11.8-14.3)
[2022-12-02 11:47] LABS: Calcium 8.4 mg/dL (8.5-10.1); Potassium 3.5 mmol/L (3.5-5.1)
[2022-12-02 12:05] LABS: Band Neutrophils % (manual) 0; Basophils % (manual) 0 (0.0-2.0); Blast Cells 0; Eosinophils % (manual) 0 (0-7); Metamyelocytes % 0; Myelocytes % 0; Promyelocytes % 0; Reactive Lymphocytes 0
[2022-12-02 13:06] LABS: Hepatitis B Core Total Antibod Negative (Negative)
[2022-12-02 16:34] LABS: Anisocytosis Slight; Hypochromia Moderate; Large Platelets FEW; Lymphocytes % (manual) 25 (10.0-50.0); Monocytes % (manual) 6 (0-12); Platelet Estimate Adequate; Target Cell FEW
[2022-12-03 05:00] VITALS: BP 148/62; PULSE 98; RESP 17; TEMP 98.4; O2SAT 98
[2022-12-03] MEDS: SODIUM CHLOR 0.9% PF (SALINE LOCK) 10ML VIAL/SYR IV SCH ×2 (06:01→13:30)
[2022-12-03] MEDS ORDERED: LEVOTHYROXINE SODIUM 25 MCG TAB PO SCH (07:00)
[2022-12-03 08:00] VITALS: PULSE 59
[2022-12-03 08:30] LABS: Hemoglobin 8.4 g/dL (12.2-16.2)
[2022-12-03 08:32] LABS: Mean Corpuscular Hemoglobin 24.5 pg (28.0-32.0); Mean Corpuscular Hgb Conc. 31.2 g/dL (32.0-36.0); Mean Corpuscular Volume 78.6 fL (80.0-100.0); Red Blood Cells 3.44 10^6/uL (4.0-5.20); White Blood Cell 3.5 10^3/uL (4.4-10.8)
[2022-12-03 08:45] LABS: Red Cell Distribution Width 22.7 % (11.8-14.3)
[2022-12-03 08:46] LABS: Band Neutrophils % (manual) 0; Basophils % (manual) 0 (0.0-2.0); Blast Cells 0; Metamyelocytes % 0; Myelocytes % 0; Promyelocytes % 0; Reactive Lymphocytes 0
[2022-12-03 08:54] VITALS: BP 142/57; PULSE 51; RESP 18; TEMP 97.9; O2SAT 97
[2022-12-03] MEDS: ENOXAPARIN SOD 60 MG/0.6 ML SYRINGE SC SCH (11:19)
[2022-12-03] MEDS: FUROSEMIDE 20 MG TAB PO SCH (11:19)
[2022-12-03] MEDS: ASPirin 81 mg TAB PO SCH (11:19)
[2022-12-03 13:00] VITALS: BP_SYST 119; BP_SYST 122; BP_DIAS 55; BP_DIAS 63; PULSE 76; RESP 14; TEMP 98; O2SAT 96
[2022-12-03 13:38] LABS: Eosinophils % (manual) 1 (0-7); Lymphocytes % (manual) 43 (10.0-50.0); Monocytes % (manual) 3 (0-12)
[2022-12-03 13:39] LABS: Anisocytosis Slight; Platelet Estimate Adequate; Target Cell FEW
[2022-12-03 16:58] VITALS: BP 118/51; PULSE 65; RESP 16; TEMP 98.2; O2SAT 93
[2022-12-04 09:48] LABS: Hepatitis B Surface Antibody Negative (Negative)
[2022-12-04 11:53] LABS: Hepatitis B Surface Antigen Negative (Negative)
== END 2022-12-03 18:00 | disposition home or self-care (01) | DRG 300 ==
LOC: ER 14:55 → TELE 17:44 → TELE-WESTW 22:27
PROVIDERS: ADMIT Internal Medicine; ATTEND Emergency Medicine Emergency Medical Services
PROC: 05HA33Z Insertion of Infusion Device into Left Brachial Vein, Percutaneous Approach (ICD-10-PCS; principal; 2022-12-01)
PROC: B54NZZA Ultrasonography of Left Upper Extremity Veins, Guidance (ICD-10-PCS; 2022-12-01)
DX: I82.611 Acute embolism and thrombosis of superficial veins of right upper extremity (principal); E44.1 Mild protein-calorie malnutrition; I50.42 Chronic combined systolic (congestive) and diastolic (congestive) heart failure; J96.10 Chronic respiratory failure, unspecified whether with hypoxia or hypercapnia; D64.9 Anemia, unspecified; D72.819 Decreased white blood cell count, unspecified; E03.9 Hypothyroidism, unspecified; E78.5 Hyperlipidemia, unspecified; I11.0 Hypertensive heart disease with heart failure; R79.89 Other specified abnormal findings of blood chemistry; E05.20 Thyrotoxicosis with toxic multinodular goiter without thyrotoxic crisis or storm; I82.B11 Acute embolism and thrombosis of right subclavian vein; I82.411 Acute embolism and thrombosis of right femoral vein; R93.89 Abnormal findings on diagnostic imaging of other specified body structures; I82.C11 Acute embolism and thrombosis of right internal jugular vein; I25.10 Atherosclerotic heart disease of native coronary artery without angina pectoris; I73.9 Peripheral vascular disease, unspecified; C54.1 Malignant neoplasm of endometrium; J44.9 Chronic obstructive pulmonary disease, unspecified; Z86.718 Personal history of other venous thrombosis and embolism; Z86.73 Personal history of transient ischemic attack (TIA), and cerebral infarction without residual deficits; Z68.21 Body mass index [BMI] 21.0-21.9, adult
CPT/HCPCS: 36415; 36600; 71275; 73706; 76705; 80048; 80053; 80074; 80307; 81001; 82607; 82728; 82805; 83010; 83036; 83540; 83550; 83605; 83615; 84439; 84443; 84484; 85007; 85027; 85045; 85610; 85730; 86038; 86703; 86706; 86803; 86880; 87081; 87340; 93005; 93925; 93970; 93971; 97163; G0378; J2405

== ENCOUNTER → 2023-03-30 | Outpatient (CLI) | payer MEDICARE ==
[~2023-03-30] MED LIST changes: +AMLO1TAB22 PO; +CLOP75TA70 PO; +CYCL-614 PO; +FUR20T PO; +LEVO75TA6 PO; +LOPE-62 PO; +METH-1181 PO; +POTA1TAB4; +PRAV20TA3 PO; +SULF500T57 PO
== END | disposition home or self-care (01) ==
LOC: LAB 09:01
PROVIDERS: ATTEND Nurse Practitioner Family
DX: N39.0 Urinary tract infection, site not specified (principal)
CPT/HCPCS: 87086